=== PATIENT | male | born 1955 | race Asian ===

== ENCOUNTER 2018-03-23 02:12 | Emergency (ER) | payer MEDICARE ==
[~2018-03-23] VITALS: Ht 167.6 cm; Wt 79.4 kg
[2018-03-23 02:23] VITALS: BP 143/93
[2018-03-23] MEDS ORDERED: TETANUS-DIPTH-ACEL PERTUSSIS 0.5ML SYRG IM ONE (03:45)
[2018-03-23] MEDS ORDERED: HYDROcodone-ACET 10/325MG TAB PO ONE (04:15)
[2018-03-23] MEDS ORDERED: cefTRIAXone SOD 1,000 MG VL IM ONE (04:15)
== END 2018-03-23 04:48 | disposition home or self-care (01) ==
LOC: ER 02:12
DX: S91.051A Open bite, right ankle, initial encounter (principal); S81.851A Open bite, right lower leg, initial encounter; S61.257A Open bite of left little finger without damage to nail, initial encounter; W54.0XXA Bitten by dog, initial encounter; Y93.89 Activity, other specified; Y99.8 Other external cause status; Y92.89 Other specified places as the place of occurrence of the external cause
CPT/HCPCS: 73590; 90471; 90715; 96372; 99285; J0696